=== PATIENT | female | born 1960 | race Caucasian/White ===

== ENCOUNTER 2020-09-28 16:00 | Emergency (ER) | payer BC ==
--- NOTE | 2020-09-28 16:26 | ERPHSYRPT ---
- History of Present Illness Time Seen by Provider: 09/28/20 16:25 Source: patient Exam Limitations: no limitations Patient Subjective Stated Complaint: Pt states "I have pain when I go to the bathroom and I feel like I need to go all the time." Triage Nursing Assessment: Pt presented alert and oriented X 3, skin pwd. pt ambulates with an upright steady gait, able to speak in clear full sentences Physician History: Patient is a 60-year-old female presents to our ED with complaints of suprapubic pressure, dysuria, urinary frequency and dark urine. Symptoms started this morning. No fever. No back pain. No nausea or vomiting. Symptoms are mild to moderate in intensity. No specific worsening improving factors. Patient otherwise healthy. She voices no other complaints concerns at this time. Timing/Duration: today Severity: mild (Patient declined pain medication.) Modifying Factors: Improves With: nothing Associated Symptoms: denies symptoms Allergies/Adverse Reactions: azithromycin Allergy (Mild, Verified 10/05/11 07:54) Vomiting Home Medications: Amlodipine-Benazepril 5-10 mg 10/05/11 [History] Biofreeze with Ilex Gel QID 10/05/11 [History] Naproxen 220 mg PO BID 10/05/11 [History] Atorvastatin Calcium 80 mg PO DAILY 09/28/20 [History] Benzonatate 100 mg PO DAILY 09/28/20 [History] Clopidogrel Bisulfate 75 mg [PLAVIX 75 MG Tablet] 75 mg PO DAILY 09/28/20 [History] Isosorbide Mononitrate 30 mg [Imdur 30 MG] 30 mg PO DAILY 09/28/20 [History] Lisinopril 5 mg [Zestril 5 MG] 5 mg PO DAILY 09/28/20 [History] Hx Tetanus, Diphtheria Vaccination/Date Given: No Hx Influenza Vaccination/Date Given: Yes Hx Pneumococcal Vaccination/Date Given: No Immunizations Up to Date: Yes Travel Risk - International Travel Have you traveled outside of the country in past 3 weeks: No - Coronavirus Screening Are you exhibiting any of the following symptoms?: No Close contact with a COVID-19 positive Pt in past 14-21 Days: No - Vaccine Status Have you recieved a Covid-19 vaccination: Yes 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 - Vaccination Dates Date of 2cond Vaccination (if applicable): - Review of Systems Constitutional: No Symptoms, No Fever, No Chills Eyes: No Symptoms Ears, Nose, & Throat: No Symptoms Respiratory: No Symptoms, No Cough, No Dyspnea Cardiac: No Symptoms, No Chest Pain, No Edema, No Syncope Abdominal/Gastrointestinal: No Symptoms, No Abdominal Pain, No Nausea, No Vomiting, No Diarrhea Genitourinary Symptoms: No Symptoms, No Dysuria Musculoskeletal: No Symptoms, No Back Pain, No Neck Pain Skin: No Symptoms, No Rash Neurological: No Symptoms, No Dizziness, No Focal Weakness, No Sensory Changes Psychological: No Symptoms Endocrine: No Symptoms Hematologic/Lymphatic: No Symptoms Immunological/Allergic: No Symptoms All Other Systems: Reviewed and Negative - Past Medical History Pertinent Past Medical History: Yes Neurological History: Migraines ENT History: No Pertinent History Cardiac History: No Pertinent History, Hypertension Respiratory History: No Pertinent History, Other Endocrine Medical History: No Pertinent History Musculoskeletal History: No Pertinent History GI Medical History: No Pertinent History History: No Pertinent History Psycho-Social History: Anxiety Female Reproductive Disorders: Other - Past Surgical History Past Surgical History: Yes Gastrointestinal: Appendectomy Female Surgical History: Section, Hysterectomy - Social History Smoking Status: Former smoker How long have you smoked: long time Exposure to second hand smoke: Yes Drug Use: none Patient Lives Alone: No - Female History Hx Now: No - Nursing Vital Signs Nursing Vital Signs: Initial Vital Signs Temperature 97.7 F 09/28/20 16:07 Pulse Rate 69 09/28/20 16:07 Respiratory Rate 20 09/28/20 16:07 Blood Pressure 161/79 09/28/20 16:07 O2 Sat by Pulse Oximetry 99 09/28/20 16:07 Pain Scale Pain Intensity 0 - Physical Exam General Appearance: no apparent distress, alert Eye Exam: PERRL/EOMI, eyes nml inspection Ears, Nose, Throat Exam: normal ENT inspection, TMs normal, pharynx normal, moist mucous membranes Neck Exam: normal inspection, non-tender, supple, full range of motion Respiratory Exam: normal breath sounds, lungs clear, No respiratory distress Cardiovascular Exam: regular rate/rhythm, normal heart sounds, normal peripheral pulses Gastrointestinal/Abdomen Exam: soft, normal bowel sounds, No tenderness, No mass Back Exam: normal inspection, normal range of motion, No CVA tenderness, No vertebral tenderness Extremity Exam: normal inspection, normal range of motion, pelvis stable Neurologic Exam: alert, oriented x 3, cooperative, normal mood/affect, sensation nml, No motor deficits Skin Exam: normal color, warm, dry, No rash Lymphatic Exam: No adenopathy SpO2 Interpretation: normal SpO2: 99 O2 Delivery: Room Air - Course Nursing assessment & vital signs reviewed: Yes Ordered Tests: Active Orders 24 hr Category Date Time Status CULTURE,URINE Stat Lab 09/28/20 16:28 Received UA W/RFX UR CULTURE Stat Lab 09/28/20 16:28 Completed Medication Summary Discontinued Medications Generic Name Dose Route Start Last Admin Trade Name Kanaq PRN Reason Stop Dose Admin Acetaminophen 975 mg 09/28/20 17:06 Tylenol 325 Mg PO 09/28/20 17:07 STAT ONE Acetaminophen Confirm 09/28/20 17:14 Tylenol 325 Mg Administered 09/28/20 17:15 Dose 975 mg .ROUTE .[facility] ONE Lab/Rad Data: Laboratory Results 09/28/20 Range/Units 16:28 Urine Color YELLOW (YELLOW) Urine Appearance CLOUDY (CLEAR) Urine pH 5.0 (5-6) Ur Specific [place] 1.023 (1.005-1.025) Urine Protein 100 (Negative) Urine Ketones NEGATIVE (NEGATIVE) Urine Blood LARGE (0-5) Del/ul Urine Nitrite NEGATIVE (NEGATIVE) Urine Bilirubin NEGATIVE (NEGATIVE) Urine Urobilinogen NEGATIVE (0-1) mg/dL Ur Leukocyte Esterase SMALL (NEGATIVE) Urine WBC (Auto) 51-100 (0-5) /HPF Urine RBC (Auto) >101 (0-2) /HPF U Epithel Cells (Auto) RARE (FEW) /HPF Urine Bacteria (Auto) NONE SEEN (NEGATIVE) /HPF Urine Mucus (Auto) SLIGHT (NEGATIVE) /HPF Urine Yeast (Budding) Rare (NEGATIVE) /HPF Urine Culture Reflexed YES (NO) Urine Glucose NEGATIVE (NEGATIVE) mg/dL - Progress Progress: improved Progress Note: Patient reassessed. She later requested pain medication. 975 mg of Tylenol administered. UA reveals a urinary tract infection. Patient received a dose of Macrobid in our ED. A prescription for the same was forwarded to patient's pharmacy. Patient agrees to follow-up with her primary care doctor within 48 hours for reevaluation. Portions of this note were created with voice recognition technology. There may be grammatical, spelling, punctuation or sound alike errors 09/28/20 17:17 Counseled pt/family regarding: lab results, diagnosis, need for follow-up - Departure Departure Disposition: Home Clinical Impression: UTI (urinary tract infection) Condition: Stable Critical Care Time: No Referrals: ILDEFONSO LOCKE [Primary Care Provider] - Additional Instructions: Discharge/Care Plan WILMER MOREIRAANN was seen on 09/28/20 in the Emergency Room. The patient was counseled regarding Diagnosis,Lab results, Imaging studies, need for follow up and when to return to the Emergency Room. Prescriptions given: Discharge Note I have spoken with the patient and/or caregivers. I have explained the patient's condition, diagnosis and treatment plan based on the information available to me at this time. I have answered the patient's and/or caregiver's questions and addressed any concerns. The patient and/or caregivers have as good understanding of the patient's diagnosis, condition and treatment plan as can be expected at this point. The vital signs have been stable. The patient's condition is stable and appropriate for discharge from the emergency department. The patient will pursue further outpatient evaluation with the primary care physician or other designated or consulting physician as outlined in the discharge instructions. The patient and/or caregivers are agreeable to this plan of care and follow-up instructions have been explained in detail. The patient and/or caregivers have received these instruction. The patient/and or caregivers are aware that any significant change in condition or worsening of symptoms should prompt an immediate return to this or the closest emergency department or call 911. Prescriptions: Nitrofurantoin Macro 100 mg [Macrobid 100MG Capsule] 100 mg PO BID 7 Days #14
[2020-09-28] MEDS ORDERED: TYLENOL 325 MG PO ONE (17:06)
[2020-09-28 17:11] LABS: Appearance CLOUDY (CLEAR); Bilirubin NEGATIVE (NEGATIVE); Blood LARGE Ery/ul (0-5); Epithelial Cells RARE /HPF (FEW); Glucose NEGATIVE (NEGATIVE); Ketones NEGATIVE (NEGATIVE); Leukocyte Esterase SMALL (NEGATIVE); Mucus SLIGHT /HPF (NEGATIVE); Nitrite NEGATIVE (NEGATIVE); Protein,Urine Dip 100 (Negative); Specific Gravity 1.023 (1.005-1.025); Urobilinogen NEGATIVE mg/dL (0-1); WBC 51-100 /HPF (0-5)
[2020-09-28 17:13] LABS: Bacteria NONE SEEN /HPF (NEGATIVE); Budding Yeast Rare /HPF (NEGATIVE); RBC >101 /HPF (0-2)
[2020-09-28] MEDS ORDERED: TYLENOL 325 MG ONE (17:14)
[2020-09-28 17:15] VITALS: BP 158/75; PULSE 68
[2020-09-28] MEDS ORDERED: Macrobid 100MG Capsule PO ONE (17:15)
[2020-09-28 17:18] VITALS: O2SAT 99
[2020-09-28] MEDS ORDERED: Macrobid 100MG Capsule ONE (17:19)
== END 2020-09-28 17:39 | disposition home or self-care (01) ==
LOC: ED 16:00
DX: N39.0 Urinary tract infection, site not specified (principal)
CPT/HCPCS: 81001; 87077; 87086; 87186; 99283; A9270-GY

== ENCOUNTER 2023-11-10 02:06 | Emergency (ER) | payer BC ==
--- NOTE | 2023-11-10 02:57 | ERPHSYRPT ---
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 Patient does have a history of 2 cardiac stents placed in 2017. Dr. Rivera is her operator engineer. She was seen by him earlier this week and has an appointment to see him again on 11/12/2023. The patient has been evaluated 4 times since 10/26/2023 for similar symptoms. Patient has a history of hypertension, hyperlipidemia, anxiety and is on Eliquis. She is not short of breath. She has not had a fever or cough. Patient took 2 nitro and 4 baby aspirin prior to arrival to the emergency department. Symptoms have resolved. Timing/Duration: today Quality: pressure (Heaviness) Location: substernal, central Chest Pain Radiation: arm (Primarily tingling in her left hand) Severity of Pain-Max: mild Severity of Pain-Current: mild Modifying Factors: Improves With: nitroglycerin, aspirin Associated Symptoms: palpitations, other (Heart racing), No shortness of breath, No cough Prior Chest Pain/Cardiac Workup: cardiac cath, echocardiography, recently seen/treated Nitro Today/Relief: 0.4 mg x 2, provided at home, complete relief Aspirin Treatment Today: 81 mg x 4, provided at home Allergies/Adverse Reactions: erythromycin base Allergy (Verified 11/10/23 06:14) Vomiting codeine Adverse Reaction (Verified 11/10/23 06:14) Nausea and Vomiting Home Medications: Atorvastatin Calcium 80 mg PO DAILY 09/28/20 [History] Isosorbide Mononitrate 30 mg [Imdur 30 MG] 60 mg PO DAILY 09/28/20 [History] Lisinopril 5 mg [Zestril 5 MG] 10 mg PO DAILY 09/28/20 [History] Apixaban [Eliquis] 5 mg PO BID 11/10/23 [History] Metoprolol Succinate 25 mg PO DAILY PRN 11/10/23 [History] Hx Tetanus, Diphtheria Vaccination/Date Given: No Hx Influenza Vaccination/Date Given: Yes Hx Pneumococcal Vaccination/Date Given: No Travel Risk - International Travel Have you traveled outside of the country in past 3 weeks: No - Emerging Infectious Disease Are you exhibiting symptoms associated with any current EIDs: No - Review of Systems Constitutional: No Symptoms Eyes: No Symptoms Ears, Nose, & Throat: No Symptoms Respiratory: No Symptoms Cardiac: No Symptoms Abdominal/Gastrointestinal: No Symptoms Genitourinary Symptoms: No Symptoms Musculoskeletal: No Symptoms Skin: No Symptoms Neurological: No Symptoms Psychological: No Symptoms Endocrine: No Symptoms Hematologic/Lymphatic: No Symptoms Immunological/Allergic: No Symptoms All Other Systems: Reviewed and Negative - Past Medical History Pertinent Past Medical History: Yes Neurological History: Migraines ENT History: No Pertinent History Cardiac History: No Pertinent History, Hypertension Respiratory History: No Pertinent History, Other Endocrine Medical History: No Pertinent History Musculoskeletal History: No Pertinent History GI Medical History: No Pertinent History History: No Pertinent History Psycho-Social History: Anxiety Female Reproductive Disorders: Other - Past Surgical History Past Surgical History: Yes Gastrointestinal: Appendectomy Female Surgical History: Section, Hysterectomy - Social History Smoking Status: Former smoker How long have you smoked: long time Exposure to second hand smoke: Yes Drug Use: none Patient Lives Alone: No - Physical Exam General Appearance: no apparent distress, alert, anxiety Eye Exam: PERRL/EOMI, eyes nml inspection Ears, Nose, Throat Exam: normal ENT inspection, moist mucous membranes Neck Exam: normal inspection, non-tender, supple, full range of motion Respiratory Exam: normal breath sounds, chest tenderness, lungs clear, airway intact, No respiratory distress Cardiovascular Exam: regular rate/rhythm, normal heart sounds, normal peripheral pulses Gastrointestinal/Abdomen Exam: soft, normal bowel sounds, No tenderness Pelvic Exam: not done Rectal Exam: not done Back Exam: normal inspection, normal range of motion, No CVA tenderness, No vertebral tenderness Extremity Exam: normal inspection, normal range of motion, pelvis stable Neurologic Exam: alert, oriented x 3, cooperative, fur grader II-XII nml as tested, nml cerebellar function, nml station & gait, sensation nml Skin Exam: normal color, warm, dry Lymphatic Exam: No adenopathy SpO2 Interpretation: normal O2 Delivery: Room Air - Course Nursing assessment & vital signs reviewed: Yes EKG Interpreted by Me: RATE (62), Sinus Rhythm, NORMAL AXIS, NORMAL INTERVALS, NORMAL QRS, Other (No acute ischemia on today's twelve-lead EKG. QTc is 410) - Progress Progress: improved, re-examined Air Movement: good Progress Note: 11/10/23 03:23 My medical decision making and the assignment of moderate complexity to this patient's medical issue today is based on review of the patient's past medical history, review the patient's medication list, review patient drug allergy list, history present illness and physical findings on examination. The workup in this patient includes chest x-ray, IV line placement, twelve-lead EKG, CBC, CMP, D-dimer, troponin level, BNP, PT/INR and magnesium level. Differential diagnosis includes but is not limited to anxiety/stress, myocardial infarction, electrolyte abnormalities, arrhythmia, pulmonary embolus 11/10/23 06:33 I interpreted the patient's laboratory data results. Based on the laboratory data results, the patient has no acute or emergent medical issue. I interpreted the patient's preliminary chest x-ray report. There is no evidence of any acute, cardiopulmonary process. This patient has significant cardiac risk factors. Her chest pain has resolved. Will keep her for 3-hour troponin/twelve-lead EKG. The patient's 3-hour troponin level is still normal but it did slightly increase from 0.012 to 0.017. The patient's 3-hour twelve-lead EKG was interpreted by me. The repeat twelve- lead EKG was performed at 0538 on 11/10/2023. There is a 56 bpm rate. The rhythm is normal sinus rhythm. There is normal axis deviation. Normal intervals and normal QRS. The QTc is 389 and there is no evidence of any acute ischemia. Given the patient had a slight increase in her troponin level but still the troponin range and a stable twelve-lead EKG I think it is reasonable to keep her here in the emergency department to repeat another troponin level and twelve- lead EKG at 8 AM. This was discussed with the patient and she agrees. I am transferring care of this patient to Dr. Sharma at shift change. He will follow-up on the outstanding lab and EKG and make final disposition. Counseled pt/family regarding: lab results, diagnosis, need for follow-up, rad results Medical Desision Making - Independent Historian Additional History obtained from: Spouse - Diagnostic Testing Diagnostic test were ordered, analyzed, and reviewed by me: Yes Radiological Interpretation: Interpreted by me - Departure Departure Disposition: Home Clinical Impression: Chest pain Condition: Stable Critical Care Time: No Referrals: DOCTOR,NO FAMILY [Primary Care Provider] - Follow up/PCP as directed CONNIE RIVERA MD [CONSULTING PHYSICIAN] - Follow up with PCP 2 days Instructions: Chest Pain (DC) <PADMA SHARMA - Last Filed: 11/10/23 08:41> - Nursing Vital Signs Nursing Vital Signs: Initial Vital Signs Pulse Rate 69 11/10/23 02:30 Respiratory Rate 16 11/10/23 02:30 Blood Pressure 153/92 11/10/23 02:30 O2 Sat by Pulse Oximetry 97 11/10/23 02:30 Pain Scale Pain Intensity 3 Ordered Tests: Active Orders 24 hr Category Date Time Status 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 STAT Care 11/10/23 02:58 Active EKG-ER Only STAT Care 11/10/23 02:57 Active IV Insertion STAT Care 11/10/23 02:57 Active Pulse Oximetry (ED) STAT Care 11/10/23 02:57 Active CHEST 1 VIEW (PORTABLE) Stat Exams 11/10/23 02:58 Completed CBC W DIFF Stat Lab 11/10/23 02:57 Completed CMP Stat Lab 11/10/23 02:50 Completed D-DIMER QUANTITATIVE Stat Lab 11/10/23 03:11 Completed MAGNESIUM Stat Lab 11/10/23 02:50 Completed NT PRO BNPII Stat Lab 11/10/23 02:50 Completed PROTIME WITH INR Stat Lab 11/10/23 03:11 Completed TROPONIN Q4H Lab 11/10/23 03:00 Completed TROPONIN Q4H Lab 11/10/23 05:31 Completed TROPONIN Q4H Lab 11/10/23 07:58 Completed TROPONIN Q4H Lab 11/10/23 11:00 Ordered TROPONIN Q4H Lab 11/10/23 12:00 Ordered TROPONIN Q4H Lab 11/10/23 16:00 Ordered TROPONIN Q4H Lab 11/10/23 20:00 Ordered Lab/Rad Data: Laboratory Result Diagrams 11/10/23 02:57 11/10/23 02:50 Laboratory Results 11/10/23 11/10/23 11/10/23 Range/Units 07:58 05:31 03:11 WBC (3.98-10.04) x10^3/uL RBC (3.93-5.22) x10^6/uL Hgb (11.2-15.7) g/dL Hct (34.1-44.9) % MCV (79.4-94.8) fL MCH (25.6-32.2) pg MCHC (32.2-35.5) g/dL RDW (11.7-14.4) % Plt Count (182-369) x10^3/uL MPV (9.4-12.3) fL Gran % (34.0-71.1) % Immature Gran % (Auto) (0.001-0.429) % Nucleat RBC Rel Count (0.00-0.2) % Eos # (Auto) (0.04-0.36) x10^3/uL Immature Gran # (Auto) (0.001-0.031) x10^3u/L Absolute Lymphs (auto) (1.18-3.74) x10^3/uL Absolute Monos (auto) (0.24-0.86) x10^3/uL Absolute Nucleated RBC (0.00-0.012) x10^3u/L Lymphocytes % (19.3-51.7) % Monocytes % (4.7-12.5) % Eosinophils % (0.7-5.8) % Basophils % (0.1-1.2) % Absolute Granulocytes (1.56-6.13) x10^3/uL Basophils # (0.01-0.08) x10^3/uL PT 11.1 (9.4-12.5) SECONDS INR 1.02 (0.8-3.0) D-Dimer < 0.19 (0.0-0.50) mg/L Sodium (135-145) mmol/L Potassium (3.5-5.1) mmol/L Chloride (98-107) mmol/L Carbon Dioxide (22-30) mmol/L Anion Gap (5-15) MEQ/L BUN (7-17) mg/dL Creatinine (0.52-1.04) mg/dL Estimated GFR ML/MIN Glucose (74-106) mg/dL Calcium (8.4-10.2) mg/dL Magnesium (1.6-2.3) mg/dL Total Bilirubin (0.2-1.3) mg/dL AST (14-36) U/L ALT (0-35) U/L Alkaline Phosphatase (38-126) U/L Troponin I 0.016 0.017 (0.000-0.033) ng/mL NT-Pro-B Natriuret Pep (<300) pg/mL Serum Total Protein (6.3-8.2) g/dL Albumin (3.5-5.0) g/dL 11/10/23 11/10/23 11/10/23 Range/Units 03:00 02:57 02:50 WBC 7.0 (3.98-10.04) x10^3/uL RBC 4.69 (3.93-5.22) x10^6/uL Hgb 13.2 (11.2-15.7) g/dL Hct 41.0 (34.1-44.9) % MCV 87.4 (79.4-94.8) fL MCH 28.1 (25.6-32.2) pg MCHC 32.2 (32.2-35.5) g/dL RDW 13.2 (11.7-14.4) % Plt Count 300 (182-369) x10^3/uL MPV 9.7 (9.4-12.3) fL Gran % 63.1 (34.0-71.1) % Immature Gran % (Auto) 0.3 (0.001-0.429) % Nucleat RBC Rel Count 0.0 (0.00-0.2) % Eos # (Auto) 0.16 (0.04-0.36) x10^3/uL Immature Gran # (Auto) 0.02 (0.001-0.031) x10^3u/L Absolute Lymphs (auto) 1.79 (1.18-3.74) x10^3/uL Absolute Monos (auto) 0.56 (0.24-0.86) x10^3/uL Absolute Nucleated RBC 0.00 (0.00-0.012) x10^3u/L Lymphocytes % 25.6 (19.3-51.7) % Monocytes % 8.0 (4.7-12.5) % Eosinophils % 2.3 (0.7-5.8) % Basophils % 0.7 (0.1-1.2) % Absolute Granulocytes 4.41 (1.56-6.13) x10^3/uL Basophils # 0.05 (0.01-0.08) x10^3/uL PT (9.4-12.5) SECONDS INR (0.8-3.0) D-Dimer (0.0-0.50) mg/L Sodium 139 (135-145) mmol/L Potassium 3.9 (3.5-5.1) mmol/L Chloride 108 H (98-107) mmol/L Carbon Dioxide 19 L (22-30) mmol/L Anion Gap 15.0 (5-15) MEQ/L BUN 21 H (7-17) mg/dL Creatinine 0.86 (0.52-1.04) mg/dL Estimated GFR 75.4 ML/MIN Glucose 111 H (74-106) mg/dL Calcium 9.3 (8.4-10.2) mg/dL Magnesium 2.5 H (1.6-2.3) mg/dL Total Bilirubin 0.80 (0.2-1.3) mg/dL AST 31 (14-36) U/L ALT 28 (0-35) U/L Alkaline Phosphatase 122 (38-126) U/L Troponin I < 0.012 (0.000-0.033) ng/mL NT-Pro-B Natriuret Pep 102 (<300) pg/mL Serum Total Protein 7.3 (6.3-8.2) g/dL Albumin 4.2 (3.5-5.0) g/dL - Progress Progress Note: 11/10/23 08:[address] Henriquez at 0700. Waiting for 3rd troponin to release. Troponin now negative x3. She has appointment with her operator engineer on Sunday. If chest pain returns proceed to ER.
[2023-11-10 02:58] VITALS: TEMP 97.6
[2023-11-10 03:10] LABS: Absolute Neutrophil Ct (ANC) 4.41 x10^3/uL (1.56-6.13); BASOPHIL % 0.7 % (0.1-1.2); Basophil (Absolute #) 0.05 x10^3/uL (0.01-0.08); Eosinophil % 2.3 % (0.7-5.8); Eosinophil (Absolute #) 0.16 x10^3/uL (0.04-0.36); Hemoglobin 13.2 g/dL (11.2-15.7); IMMATURE GRAN # 0.02 x10^3u/L (0.001-0.031); IMMATURE GRAN % 0.3 % (0.001-0.429); Lymphocyte (Absolute #) 1.79 x10^3/uL (1.18-3.74); Lymphocytes % 25.6 % (19.3-51.7); Mean Cell Volume 87.4 fL (79.4-94.8); Mean Corpuscular Hemoglobin 28.1 pg (25.6-32.2); Mean Corpuscular Hgb Concent. 32.2 g/dL (32.2-35.5); Mean Platelet Volume 9.7 fL (9.4-12.3); Monocyte (Absolute #) 0.56 x10^3/uL (0.24-0.86); Neutrophil % 63.1 % (34.0-71.1); Platelet Count 300 x10^3/uL (182-369); Red Blood Count 4.69 x10^6/uL (3.93-5.22); Red Cell Distribution Width 13.2 % (11.7-14.4)
[2023-11-10 03:26] LABS: ALBUMIN 4.2 g/dL (3.5-5.0); BILIRUBIN,TOTAL 0.8 mg/dL (0.2-1.3); Calcium 9.3 mg/dL (8.4-10.2); Creatinine 1 0.86 mg/dL (0.52-1.04); EST GLOMERULAR FILTRATION RATE 75.4 ML/MIN; MAGNESIUM 2.5 mg/dL (1.6-2.3); Potassium 3.9 mmol/L (3.5-5.1); Total Protein 7.3 g/dL (6.3-8.2)
[2023-11-10 03:39] LABS: D-DIMER QUANTITATIVE < 0.19 mg/L (0.0-0.50); INR 1.02 (0.8-3.0); PROTIME 11.1 SECONDS (9.4-12.5)
--- NOTE | 2023-11-10 07:01 | XRAY ---
Indication: Chest pain. Comparison: None Portable chest inflated with minimal left costophrenic angle fibrosis/scarring and tiny left lung calcified granuloma. No focal infiltrate, consolidation, or large effusion. Heart not enlarged. Bony thorax intact with minimal degenerative changes. Impression: Nonacute chest with chronic features.
[2023-11-10 08:19] VITALS: RESP 13; O2SAT 97
[2023-11-10 08:53] VITALS: BP 145/85; PULSE 50
== END 2023-11-10 09:05 | disposition home or self-care (01) ==
LOC: ED 02:06
DX: R07.9 Chest pain, unspecified (principal); R20.2 Paresthesia of skin; I10 Essential (primary) hypertension; E78.5 Hyperlipidemia, unspecified; Z79.01 Long term (current) use of anticoagulants; Z79.899 Other long term (current) drug therapy
CPT/HCPCS: 36000; 36415; 71045; 80053; 83735; 83880; 84484; 85025; 85379; 85610; 93005; 93041; 94760; 99284

== ENCOUNTER 2024-08-28 11:49 | Day surgery (SDC) | payer BC ==
[2024-08-28] MEDS: Lactated Ringers 1,000 ML IV SCH (11:30)
[~2024-08-28 11:49] MED LIST: Lactated Ringers 1,000 ML IV ONE
[2024-08-28 12:07] VITALS: RESP 18
[2024-08-28] MEDS ORDERED: Xylocaine-Mpf 2% 5 Ml Vial ONE (14:35)
[2024-08-28] MEDS ORDERED: propofoL IV ONE (14:35)
[2024-08-28] MEDS ORDERED: Versed 2 MG/2 ML Injection ONE (14:36)
[2024-08-28] MEDS ORDERED: ROBINUL ONE (15:04)
[2024-08-28] MEDS ORDERED: Ephedrine Sulfate 50 MG/ML ONE (15:08)
[2024-08-28 15:42] VITALS: PULSE 93
[2024-08-28 15:47] VITALS: BP 125/64; TEMP 97.4; O2SAT 98
--- NOTE | 2024-09-01 08:44 | OP ---
SURGERY DATE/TIME: 08/28/2024 [id number] PREOPERATIVE DIAGNOSES: 1) Overdue for colorectal cancer screening, no prior. 2) Hiatal hernia. 3) Reflux. 4) Slight dysphagia. POSTOPERATIVE DIAGNOSES: 1) Gastritis, severe, with erosions and specks of blood. 2) Schatzki ring dilated to 18 mm. 3) Hiatal hernia 3 to 4 cm. 4) Colon polyps. 5) Diverticulosis. PROCEDURE: 1) Esophagogastroduodenoscopy. 2) Colonoscopy. SURGEON: Tima Mancilla M.D. ANESTHESIA: IV anesthesia. CONDITION: Stable. COMPLICATIONS: None. SPECIMENS: 1) Gastric biopsy. 2) GE junction biopsy. 3) Cecal polyp. 4) Sigmoid polyps. INDICATIONS: Patient is overdue for colorectal cancer screening. No prior colonoscopy. Average risk otherwise, but also had an EGD where it was felt she had a hiatal hernia. She has been having some reflux with just the slightest dysphagia. Things are just kind of sitting in distal esophagus and some pain. FINDINGS: Gastritis with superficial erosions, Schatzki ring, hiatal hernia, dilated to 18 mm. A few colon polyps up to 10 mm. Diverticulosis. DESCRIPTION OF PROCEDURE AND FINDINGS: The patient was brought to the endoscopy suite, routinely positioned, prepared. IV anesthesia induced by Anesthesia. Gastroscope inserted through the mouth, advanced through the third portion of the duodenum. Duodenum is normal in appearance. Stomach does have severe gastritis with erythema, friability, superficial erosions. Some adherent blood specks. Retroflexion with the hiatal hernia about 3 cm at the top of the hiatal hernia. GE junction mildly inflamed that a biopsy was taken for histology. There is also a Schatzki ring stricture at that level dilated with a balloon to 18 mm with just a mild mucosal disruption with that. The 18 mm balloon sweeps without any resistance. The stomach is suctioned out. Scope is withdrawn. Her external exam is normal. Colonoscope inserted and advanced to the cecum confirmed by the appendiceal orifice and ileocecal valve. Preparation is Aronchick good preparation. Over 90% mucosa visualized. Greater than 6-minute withdrawal time. On withdrawal: 1) There is a cecal polyp 4 mm basically at the appendiceal orifice, could just be scar, taken with a hot snare, 4 mm. 2) Sigmoid polyp 5 mm taken with a hot snare. 3) A 10 mm sigmoid polyp, pedunculated, taken with a hot snare. The retroflexion is normal. There is moderate diverticulosis. The patient tolerated the procedure well. She was taken to Recovery in stable condition. RECOMMENDATIONS: Protonix 40 mg p.o. b.i.d., Carafate 1 g q.i.d. Follow up in office within 1 month for pathology results. Probably would be 2 to 3 years on the colonoscopy.
== END 2024-08-28 15:56 | disposition home or self-care (01) ==
LOC: SDC 11:49
PROVIDERS: ATTEND Surgery
DX: Z12.11 Encounter for screening for malignant neoplasm of colon (principal); K44.9 Diaphragmatic hernia without obstruction or gangrene; K21.9 Gastro-esophageal reflux disease without esophagitis; R13.10 Dysphagia, unspecified; K29.70 Gastritis, unspecified, without bleeding; K22.2 Esophageal obstruction; K57.30 Diverticulosis of large intestine without perforation or abscess without bleeding; D12.5 Benign neoplasm of sigmoid colon

== ENCOUNTER 2025-01-11 20:59 | Emergency (ER) | payer BC ==
[2025-01-11 21:13] VITALS: TEMP 97.4
--- NOTE | 2025-01-11 21:14 | ERPHSYRPT ---
- History of Present Illness Time Seen by Provider: 01/11/25 21:02 Source: patient Exam Limitations: no limitations Physician History: 64-year-old female presents the emergency room status post fall patient reports she was trying to turn around on the stairs and get some wrapping paper from the coffee but she slipped and fell she reports she has pain in her right knee and left buttocks area denies hitting her head denies losing consciousness patient reports was mechanical fall denies any preceding chest pain or shortness of breath denies any upper extremity pain patient is primarily complaining of right knee pain has been able to ambulate since the injury has not taken anything prior to arrival now in ED for further eval Occurred: just prior to arrival, hours ago (3) Injuries/Pain Location: lower extremity (right knee) Severity of Pain-Max: mild Severity of Pain-Current: mild Modifying Factors: Improves With: nothing Associated Symptoms (Fall): trouble walking Allergies/Adverse Reactions: amoxicillin [From Augmentin] Allergy (Verified 01/11/25 21:13) clavulanic acid [From Augmentin] Allergy (Verified 01/11/25 21:13) erythromycin base Allergy (Verified 01/11/25 21:13) Vomiting codeine Adverse Reaction (Verified 01/11/25 21:13) Nausea and Vomiting Home Medications: Atorvastatin Calcium 80 mg PO DAILY 09/28/20 [History] Isosorbide Mononitrate 30 mg [Imdur 30 MG] 90 mg PO DAILY 09/28/20 [History] Lisinopril 5 mg [Zestril 5 MG] 10 mg PO DAILY 09/28/20 [History] Apixaban [Eliquis] 5 mg PO BID 11/10/23 [History] Metoprolol Succinate 12.5 mg PO DAILY PRN 11/10/23 [History] Calcium Carb, Citrate/Vit D3 [Calcium + D3 ER Tablet] 1 tab PO BID 08/26/24 [History] Nitroglycerin 1 tab SL .SEE RX INSTUCTIONS 08/26/24 [History] Hx Tetanus, Diphtheria Vaccination/Date Given: No Hx Influenza Vaccination/Date Given: Yes Hx Pneumococcal Vaccination/Date Given: No Travel Risk - Emerging Infectious Disease Are you exhibiting symptoms associated with any current EIDs: No - Review of Systems Constitutional: No Fever, No Chills Eyes: No Symptoms Ears, Nose, & Throat: No Symptoms Respiratory: No Cough, No Dyspnea Cardiac: No Chest Pain, No Edema, No Syncope Abdominal/Gastrointestinal: No Abdominal Pain, No Nausea, No Vomiting, No Diarrhea Genitourinary Symptoms: No Dysuria Musculoskeletal: Joint Pain, Joint Swelling (knee pain), No Back Pain, No Neck Pain Skin: No Rash Neurological: No Dizziness, No Focal Weakness, No Sensory Changes Psychological: No Symptoms Endocrine: No Symptoms All Other Systems: Reviewed and Negative - Past Medical History Pertinent Past Medical History: Yes Neurological History: Migraines ENT History: No Pertinent History Cardiac History: No Pertinent History, Hypertension Respiratory History: No Pertinent History Endocrine Medical History: No Pertinent History Musculoskeletal History: No Pertinent History GI Medical History: No Pertinent History History: No Pertinent History Psycho-Social History: Anxiety Female Reproductive Disorders: Other - Past Surgical History Past Surgical History: Yes Cardiac: Cardiac Catheterization, Cardiac Stent Gastrointestinal: Appendectomy Female Surgical History: Section, Hysterectomy Other Surgical History: 2- cardiac stents - Social History Smoking Status: Former smoker How long have you smoked: long time Exposure to second hand smoke: Yes - Social Determinants of Health Will the patient participate in the screening: Yes Do you worry about a steady place to live?: No In the past 12 months,have you had to go without utilities?: No Transportation Issues: No Has anyone in your support network made you feel unsafe?: No Have you or anyone in your house had to go w/o enough food: No - Nursing Vital Signs Nursing Vital Signs: Initial Vital Signs Temperature 97.4 F 01/11/25 20:59 Pulse Rate 58 L 01/11/25 20:59 Respiratory Rate 14 01/11/25 20:59 Blood Pressure 160/70 01/11/25 20:59 O2 Sat by Pulse Oximetry 99 01/11/25 20:59 Pain Scale Pain Intensity 10 - Mcintyre Coma Score Best Eye Response (Mcintyre): (4) open spontaneously Best Verbal Response (Mcintyre): (5) oriented Best Motor Response (Eric): (6) obeys commands Eric Total: 15 - Physical Exam General Appearance: no apparent distress, alert Head Injury: no evidence of injury Eye Exam: PERRL/EOMI ENT Exam: airway nml Neck Exam: normal inspection, No tenderness Respiratory/Chest Exam: normal breath sounds, No chest tenderness, No respiratory distress Cardiovascular Exam: normal heart sounds, regular rate/rhythm Gastrointestinal Exam: soft, No tenderness, No distention, No guarding, No ecchymosis Back Exam: normal inspection, No vertebral tenderness Extremity Exam: normal range of motion, pelvis stable, swelling (right knee), No deformities Neurologic Exam: alert, oriented x 3, cooperative, sensation nml, No motor deficits Skin Exam: normal color, warm, dry - Radiology Exams Right Knee X-ray Interpretation: Interpreted by me, Negative, No Fracture, Other (Soft tissue swelling) Right Hip X-ray Interpretation: Interpreted by me, Negative, No Fracture Other X-ray Interpretation: Interpreted by me (Sacrum and coccyx), No Fracture Ordered Tests: Active Orders 24 hr Category Date Time Status HIP UNI (2V) INCL PEL IF DONE Stat Exams 01/11/25 21:12 Taken KNEE (3 VIEWS) Stat Exams 01/11/25 21:09 Taken SACRUM AND COCCYX Stat Exams 01/11/25 21:09 Taken Medication Summary Discontinued Medications Generic Name Dose Route Start Last Admin Trade Name Elizabeth PRN Reason Stop Dose Admin Acetaminophen 650 mg 01/11/25 21:09 01/11/25 21:29 Acetaminophen 325 Mg Tablet PO 01/11/25 21:10 650 mg STAT STA Administration Acetaminophen Confirm 01/11/25 21:28 Acetaminophen 325 Mg Tablet Administered 01/11/25 21:29 Dose 650 mg .ROUTE .STK-MED ONE Hydrocodone Bitart/Acetaminophen 1 tab 01/11/25 21:54 01/11/25 22:11 Hydrocodone/Apap 5/325 1 Tab Tablet PO 01/11/25 21:55 1 tab STAT ONE Administration Hydrocodone Bitart/Acetaminophen Confirm 01/11/25 22:10 Hydrocodone/Apap 5/325 1 Tab Tablet Administered 01/11/25 22:11 Dose 1 tab .ROUTE .STK-MED ONE Cyclobenzaprine HCl 10 mg 01/11/25 21:09 01/11/25 21:29 Cyclobenzaprine Hcl 10 Mg Tablet PO 01/11/25 21:10 10 mg STAT ONE Administration Cyclobenzaprine HCl Confirm 01/11/25 21:28 Cyclobenzaprine Hcl 10 Mg Tablet Administered 01/11/25 21:29 Dose 10 mg .ROUTE .STK-MED ONE - Progress Progress Note: 01/11/25 22:26 Patient was given a dose of Tylenol Flexeril and hydrocodone in the ED will be sent home with p.o. pills for hydrocodone no evidence of fracture noted recommended patient follow-up with orthopedics for potential MRI likely suffering from knee sprain with potential ligamentous injury - Departure Departure Disposition: Home Clinical Impression: Knee sprain Qualifiers: Encounter type: initial encounter Involved ligament of knee: unspecified ligament Laterality: right Qualified Code(s): S83.91XA - Sprain of unspecified site of right knee, initial encounter Coccygeal contusion Qualifiers: Encounter type: initial encounter Qualified Code(s): S30.0XXA - Contusion of lower back and pelvis, initial encounter Condition: Stable Critical Care Time: No Referrals: XIAO CASATNON DO [Primary Care Provider, [facility]] - Follow up/PCP as directed PREM BARILLAS DO [ACTIVE STAFF, ORTHOPEDICS] - Follow up/PCP as directed Instructions: Contusion (DC), Preventing falls in adults, Knee Sprain ED, Ligament Injuries in the Knee Prescriptions: Cyclobenzaprine HCl 10 mg [Cyclobenzaprine 10 MG] 10 mg PO TIDPRN #14 tablet
[2025-01-11 21:18] VITALS: O2SAT 97
[2025-01-11] MEDS ORDERED: Cyclobenzaprine 10 MG ONE (21:28)
[2025-01-11] MEDS ORDERED: TYLENOL 325 MG ONE (21:28)
[2025-01-11] MEDS: Cyclobenzaprine 10 MG PO ONE (21:29)
[2025-01-11] MEDS: TYLENOL 325 MG PO STA (21:29)
[2025-01-11] MEDS ORDERED: NORCO 5/325 MG ONE ×2 (22:10→22:34)
[2025-01-11] MEDS: NORCO 5/325 MG PO ONE ×2 (22:11→22:35)
[2025-01-11 22:24] VITALS: BP 150/77; PULSE 55; RESP 14
--- NOTE | 2025-01-12 06:37 | XRAY ---
Indication: Pain following fall. Fracture. Dislocation. Comparison: None AP pelvis and 2 view right hip demonstrates osteopenia, mild degenerative changes both hips, mild lumbosacral junction degenerative facet arthropathy, and mild scattered vascular calcifications. No acute bony, articular, or soft tissue abnormalities.
--- NOTE | 2025-01-12 06:39 | XRAY ---
Indication: Pain following fall. Comparison: None 3 view right knee demonstrates osteopenia, minimal medial degenerative joint space narrowing/spurring, and small nonspecific effusion. No other bony, articular, or soft tissue abnormalities.
--- NOTE | 2025-01-12 06:41 | XRAY ---
Indication: Pain following fall. Comparison: None 3 view sacrum/coccyx demonstrates osteopenia, mild lumbosacral junction degenerative facet arthropathy, and pelvic suture material. No other bony, articular, or soft tissue abnormalities.
== END 2025-01-11 22:55 | disposition home or self-care (01) ==
LOC: ED 20:59
DX: S83.91XA Sprain of unspecified site of right knee, initial encounter (principal); S30.0XXA Contusion of lower back and pelvis, initial encounter; W10.9XXA Fall (on) (from) unspecified stairs and steps, initial encounter; I10 Essential (primary) hypertension; Z79.01 Long term (current) use of anticoagulants; Z79.899 Other long term (current) drug therapy